=== PATIENT | male | born 1970 | race Caucasian/White ===

== ENCOUNTER 2022-06-15 11:18 | Emergency (ER) | payer OTHER, MEDICAID, SELFPAY ==
[2022-06-15 11:23] VITALS: BP 158/103; PULSE 81; RESP 20; TEMP 36.9; O2SAT 97
--- NOTE | 2022-06-15 11:32 | DI.RAD.S_ITS ---
PROCEDURE: XR LUMBAR SPINE 2-3V INDICATIONS: back pain. injury TECHNIQUE: 3 views of the lumbar spine were acquired. COMPARISON: [facility], MR, MR LUMBAR SPINE WITHOUT CONTRAST, 05/27/2017, 13:33. [facility], CR, L-SPINE 2-3 VIEWS, 12/24/2014, 6:15. FINDINGS: Bones: This patient has transitional lumbar anatomy. For the purposes of this examination, the level with the last well-developed pair of ribs is considered to be T12. This numbering scheme is chosen to remain consistent with the prior plain film report. By this numbering scheme, the S1 level is transitional and is highly lumbarized. There is a well-developed S1-S2 disc seen. No displaced fractures are seen. No suspicious lytic or blastic lesions are seen. Focal moderate disc space narrowing can be seen at T12-L1 and at L5-S1. Endplate irregularity and sclerosis are seen, which are worst at L5-S1. Lower lumbar spine facet arthropathy is seen. Prior laminectomy change can be seen at L5-S1. Soft tissues: Overlying bowel gas pattern is normal. No suspicious soft tissue calcifications. IMPRESSION: Negative for acute fracture. If there is point tenderness (or other clinical suspicion for a fracture not seen on these images) then a dedicated CT could be considered for further evaluation, if clinically appropriate. Degenerative changes are seen, which are overall worst at L5-S1 and have progressed compared to 2014. Transitional lumbar anatomy, with a highly lumbarized S1. Prior laminectomy change at L5-S1. Dictated by: Gabriele Bonilla M.D. on 06/15/2022 at 11:01 Approved by: Gabriele Bonilla M.D. on 06/15/2022 at 11:05
[2022-06-15 13:57] VITALS: BP 147/75; PULSE 86; TEMP 36.7; O2SAT 98
--- NOTE | 2022-06-15 14:16 | ED.BACK ---
HPI - Back Pain/Injury <Dede Perdomo, PROJECT ARCHITECT - Last Filed: 06/15/22 14:21> General Chief Complaint: Back Pain/Injury Stated Complaint: Back pain/injury Time Seen by Provider: 06/15/22 13:59 Source: patient History of Present Illness HPI Narrative: This is a 52-year-old gentleman presents emergency department complaining of acute exacerbation of chronic low back pain, states it has been worse over the last 3 weeks after he had a flare. He does not currently have a primary care provider, states he used to see Dr. Hernandez, states that he has been taking ibuprofen and nothing is helping his symptoms. He states that his son gave him a Vicodin this morning. Patient has a history of L5-S1 laminectomy, denies any recent trauma, urinary retention fever, chills, weakness, incontinence, or new sensation changes. He states that he needs a chronic pain provider, and is requesting tramadol for pain. Related Data Home Medications Medication Instructions Recorded Confirmed TRAMADOL HCL (ULTRAM ER) 300 mg PO QDAY #0 tabs 02/02/16 amitriptyline 25 mg tablet 25 mg PO HS ##0 02/02/16 buspirone 10 mg tablet 20 mg PO BID ##0 02/02/16 oxycodone 40 mg tablet,crush 40 mg PO QDAY ##0 02/02/16 resistant,extended release 12 hr (OxyContin) venlafaxine 75 mg capsule,extended 100 mg PO QDAY ##0 02/02/16 release 24 hr (Effexor XR) Previous Rx's Medication Instructions Recorded methocarbamol 750 mg tablet 750 mg PO Q8H PRN muscle spasm #20 06/15/22 tabs naproxen 375 mg tablet 375 mg PO BID PRN pain #30 tabs 06/15/22 prednisone 20 mg tablet 40 mg PO DAILY 5 days #10 tabs 06/15/22 tramadol 100 mg tablet,extended 100 mg PO DAILY PRN pain #10 tabs 06/15/22 release 24 hr Allergies Allergy/AdvReac Type Severity Reaction Status Date / Time diphenhydramine Allergy Unknown Verified 06/15/22 11:30 [From BENADRYL] gabapentin [GABAPENTIN] Allergy Unknown Verified 06/15/22 11:30 NSAIDS (Non-Steroidal Allergy Unknown Verified 06/15/22 11:30 Anti-Inflamma [NSAIDS (NON-STEROIDAL ANTI-INFLAMMA] Review of Systems <GRANT Dexter - Last Filed: 06/15/22 14:21> Review of Systems ROS Unobtainable: All systems reviewed & are unremarkable except as noted in HPI and below Patient History <GRANT Dexter - Last Filed: 06/15/22 14:21> Social History Smoking Status: Current every day smoker Smoking Status: Current every day smoker tobacco type: vaping alcohol intake frequency: holidays/special occasions only Substance Use Type: marijuana Exam <GRANT Dexter - Last Filed: 06/15/22 14:21> Narrative Exam Narrative: Reviewed vitals signs and nursing notes. General: cooperative, comfortable, in no acute distress, well groomed HEENT: symmetrical facial expressions, moist mucous membranes MSK: moves all extremities, neurovascularly intact, no weakness, normal tone, nontender lumbar spine to palpation, patient is ambulatory without weakness bilaterally, dorsiflexion plantar extension are intact Skin: brisk capillary refill, without pallor or erythema Neuro: normal speech and cognition, A&O x3, ambulatory, clear speech Psych: mental status is grossly normal, congruent mood, normal affect, pleasant and cooperative Initial Vital Signs Initial Vital Signs: Vital Signs Temperature 98.4 F 06/15/22 11:23 Pulse Rate 81 06/15/22 11:23 Respiratory Rate 20 06/15/22 11:23 Blood Pressure 158/103 H 06/15/22 11:23 Pulse Oximetry 97 06/15/22 11:23 Oxygen Delivery Method 06/15/22 11:23 <Leonila Martin DO - Last Filed: 06/16/22 12:49> Initial Vital Signs Initial Vital Signs: Vital Signs Temperature 98.4 F 06/15/22 11:23 Pulse Rate 81 06/15/22 11:23 Respiratory Rate 20 06/15/22 11:23 Blood Pressure 158/103 H 06/15/22 11:23 Pulse Oximetry 97 06/15/22 11:23 Oxygen Delivery Method 06/15/22 11:23 Course <GRANT Dexter - Last Filed: 06/15/22 14:21> Orders Ordered: Discontinued Medications Hydrocodone Bitart/Acetaminophen (Hydrocodone/Acet 5/325 Tablet) 2 tab PO NOW ONE Stop: 06/15/22 14:05 Last Admin: 06/15/22 15:17 Dose: 2 tab Documented By: AT Ketorolac Tromethamine (Ketorolac 30 Mg/Ml Vial) 30 mg IM NOW ONE Stop: 06/15/22 14:05 Last Admin: 06/15/22 15:17 Dose: 30 mg Documented By: AT Lidocaine (Lidocaine Patch 1 Each Adh..Patch) 1 each TOP NOW ONE Stop: 06/15/22 14:05 Last Admin: 06/15/22 15:19 Dose: 1 each Documented By: AT Methocarbamol (Methocarbamol 500 Mg Tablet) 750 mg PO NOW ONE Stop: 06/15/22 14:05 Last Admin: 06/15/22 15:16 Dose: 750 mg Documented By: AT Pantoprazole Sodium (Pantoprazole Dr 20 Mg Tablet) 20 mg PO NOW ONE Stop: 06/15/22 14:05 Last Admin: 06/15/22 15:15 Dose: 20 mg Documented By: AT Prednisone (Prednisone 20 Mg Tablet) 40 mg PO NOW ONE Stop: 06/15/22 14:05 Last Admin: 06/15/22 15:16 Dose: 40 mg Documented By: AT Vital Signs Vital signs: Vital Signs - 8 hr 06/15/22 11:23 06/15/22 13:57 Temperature 98.4 F 98.1 F Pulse Rate 81 86 Respiratory Rate 20 Blood Pressure 158/103 H 147/75 H Pulse Oximetry 97 98 Oxygen Delivery Method Room Air Room Air <Leonila Martin, - Last Filed: 06/16/22 12:49> Orders Ordered: Discontinued Medications Hydrocodone Bitart/Acetaminophen (Hydrocodone/Acet 5/325 Tablet) 2 tab PO NOW ONE Stop: 06/15/22 14:05 Last Admin: 06/15/22 15:17 Dose: 2 tab Documented By: AT Ketorolac Tromethamine (Ketorolac 30 Mg/Ml Vial) 30 mg IM NOW ONE Stop: 06/15/22 14:05 Last Admin: 06/15/22 15:17 Dose: 30 mg Documented By: AT Lidocaine (Lidocaine Patch 1 Each Adh..Patch) 1 each TOP NOW ONE Stop: 06/15/22 14:05 Last Admin: 06/15/22 15:19 Dose: 1 each Documented By: AT Methocarbamol (Methocarbamol 500 Mg Tablet) 750 mg PO NOW ONE Stop: 06/15/22 14:05 Last Admin: 06/15/22 15:16 Dose: 750 mg Documented By: AT Pantoprazole Sodium (Pantoprazole Dr 20 Mg Tablet) 20 mg PO NOW ONE Stop: 06/15/22 14:05 Last Admin: 06/15/22 15:15 Dose: 20 mg Documented By: AT Prednisone (Prednisone 20 Mg Tablet) 40 mg PO NOW ONE Stop: 06/15/22 14:05 Last Admin: 06/15/22 15:16 Dose: 40 mg Documented By: AT Vital Signs Vital signs: Vital Signs - 8 hr 06/15/22 11:23 06/15/22 13:57 Temperature 98.4 F 98.1 F Pulse Rate 81 86 Respiratory Rate 20 Blood Pressure 158/103 H 147/75 H Pulse Oximetry 97 98 Oxygen Delivery Method Room Air Room Air MDM - Back Pain/Injury <Dede Perdomo [facility] - Last Filed: 06/15/22 14:21> Lab Data Labs: Urine Dip Bedside Urine Glucose Negative Bedside Urine Bilirubin - Negative Bedside Urine Ketone - Negative Urine Specific [place] 1.010 Bedside Urine Occult Blood - Negative Bedside Urine pH 7.0 Bedside Urine Protein - Negative Bedside Urine Urobilinogen - Negative Bedside Urine Nitrite - Negative Bedside Urine Leukocytes - Negative Esterase Imaging Data Lumbar XR: Radiologist's Impression: PROCEDURE:? XR LUMBAR SPINE 2-3V ? INDICATIONS:? back pain. injury ? TECHNIQUE:? 3 views of the lumbar spine were acquired.? ? COMPARISON:? [facility], MR, MR LUMBAR SPINE WITHOUT CONTRAST, 05/27/2017, 13:33.? [facility], CR, L-SPINE 2-3 VIEWS, 12/24/2014, 6:15. ? FINDINGS:? ? Bones:? This patient has transitional lumbar anatomy. For the purposes of this examination, the level with the last well-developed pair of ribs is considered to be T12. ?This numbering scheme is chosen to remain consistent with the prior plain film report.? By this numbering scheme, the S1 level is transitional and is highly lumbarized.? There is a well-developed S1-S2 disc seen. ? No displaced fractures are seen.? No suspicious lytic or blastic lesions are seen. ? Focal moderate disc space narrowing can be seen at T12-L1 and at L5-S1.? Endplate irregularity and sclerosis are seen, which are worst at L5-S1. Lower lumbar spine facet arthropathy is seen.? ? Prior laminectomy change can be seen at L5-S1. ? Soft tissues:? Overlying bowel gas pattern is normal.? No suspicious soft tissue calcifications.? ? ? IMPRESSION:? Negative for acute fracture. ? If there is point tenderness (or other clinical suspicion for a fracture not seen on these images) then a dedicated CT could be considered for further evaluation, if clinically appropriate. ? Degenerative changes are seen, which are overall worst at L5-S1 and have progressed compared to 2015. ? Transitional lumbar anatomy, with a highly lumbarized S1. ? Prior laminectomy change at L5-S1.? ? Dictated by: Gabriele Bonilla M.D. on 06/15/2022 at 11:01 ? ? Approved by: Gabriele Bonilla M.D. on 06/15/2022 at 11:05 ? MDM Narrative Medical decision making narrative: Patient presents with 3 weeks of worsening low back pain with history of chronic low back pain, prior L5-S1 laminectomy, is without recent trauma, and is afebrile. Suspect likely musculoskeletal etiology, pt is nontoxic appearing with no overt risk factors for epidural hematoma or abscess, caudal equina, and has a nonfocal neuro exam. Spine was non-tender to palpation, pt is ambulatory, without new weakness. Considered nephrolithiasis/pyelonephritis, epidural abscess/hematoma, ligamental injury, paraspinal or other muscular strain, chronic pain, osteoarthritis, disk injury/herniation, degenerative disease, radiculopathy, and critical cord compression. Pt is neurovascularly intact distally, afebrile, without immunosuppression or evidence of infection, peritoneal signs, hypertensive crisis, incontinence, meningeal signs, or abdominal pain with low suspicion for AAA. Without findings concerning for caudal equina, transverse myelitis, spinal vascular malformation, osteomyelitis, degenerative myelopathy, or cord infarction. Recommend that patient follow-up with the phone number provided to him on his discharge paperwork and to establish primary care with a provider here at [facility], ask for referral to physical therapy, and for chronic pain. Patient states understanding, Patient is appropriate and amenable to discharge home. Vital signs are stable on repeat examination is unremarkable. Patient has been informed of results. Patient has been given strict return to ER precautions for any new or worsening symptoms. Patient understands to follow up closely with outpatient providers as instructed. Patient understands plan and agrees to discharge home. All questions and concerns answered at this time. <Leonila Martin, DO - Last Filed: 06/16/22 12:49> Lab Data Labs: Urine Dip Bedside Urine Glucose Negative Bedside Urine Bilirubin - Negative Bedside Urine Ketone - Negative Urine Specific [place] 1.010 Bedside Urine Occult Blood - Negative Bedside Urine pH 7.0 Bedside Urine Protein - Negative Bedside Urine Urobilinogen - Negative Bedside Urine Nitrite - Negative Bedside Urine Leukocytes - Negative Esterase Discharge Plan Departure Patient Disposition: Home Clinical Impression: Acute exacerbation of chronic low back pain Instructions: Managing Chronic Low Back Pain, DI for Back Pain With Sciatica, DI for Back Spasm Activity Restrictions/Additional Instructions: *You have been diagnosed with an acute exacerbation of chronic low back pain. Please call the number below to get signed up for 1 of her primary care providers, I have attached [facility] pain clinic as well if you have chronic pain needs. Please take naproxen every 12 hours with food and water, 650 mg of Tylenol every 6 hours, and okay to use tramadol occasionally. Please follow-up with a provider for chronic pain medications, we are not allowed to prescribe opiates for chronic pain unfortunately. *What to do: *Please continue to take your regular medications as directed. [ x] New medication prescriptions sent to your pharmacy: [[facility]] [ ] New medication written as a paper prescription [ ] No new medications given *Please follow up with your primary care provider in 2-3 days, call for an appointment. Let them know you were seen in the Emergency Department and that we asked that you be seen for follow-up. We will electronically transmit a record of today's note if your PCP is in our system *If you do not have a primary care provider please contact [phone] to establish care with one of the [facility] primary care providers. *Return to Emergency Department if you should have any new, worsening, or concerning symptoms, such as [fever greater than 101F, chills, worsening pain, persistent vomiting or other bothersome symptoms]. Prescriptions: New tramadol 100 mg tablet extended release 24 hr 100 mg PO DAILY PRN (Reason: pain) Qty: 10 0RF methocarbamol 750 mg tablet 750 mg PO Q8H PRN (Reason: muscle spasm) Qty: 20 0RF prednisone 20 mg tablet 40 mg PO DAILY 5 Days Qty: 10 0RF naproxen 375 mg tablet 375 mg PO BID PRN (Reason: pain) Qty: 30 0RF No Action venlafaxine [Effexor XR] 75 MG capsule,extended release 24hr 100 mg PO QDAY Qty: 0 buspirone 10 MG tablet 20 mg PO BID Qty: 0 amitriptyline 25 MG tablet 25 mg PO HS Qty: 0 oxycodone [OxyContin] 40 MG tablet,oral only,ext.rel.12 hr 40 mg PO QDAY Qty: 0 TRAMADOL HCL (ULTRAM ER) 300 mg PO QDAY Qty: 0 Referrals: [facility] [Provider Group] Visit Report Forms: Patient Portal/API <Leonila Martin DO - Last Filed: 06/16/22 12:49> Cosign ED Attending Corinneature Attestation: I was immediately available in the department for consultation. Documentation has been reviewed.
[2022-06-15] MEDS: PANTOPRAZOLE DR 20 MG TABLET PO (15:15)
[2022-06-15] MEDS: methocarbamoL 500 MG TABLET 750 MG PO (15:16)
[2022-06-15] MEDS: predniSONE 20 MG TABLET 40 MG PO (15:16)
[2022-06-15] MEDS: HYDROCODONE/ACET 5/325 TABLET 2 TAB PO (15:17)
[2022-06-15] MEDS: KETOROLAC 30 MG/ML VIAL IM (15:17)
[2022-06-15] MEDS: LIDOCAINE PATCH 1 EACH ADH..PATCH TOP (15:19)
[2022-06-15 15:23] VITALS: BP 167/79; PULSE 86; RESP 18; O2SAT 97
== END 2022-06-15 15:24 | disposition home or self-care (01) ==
PROVIDERS: Emergency Provider Nurse Practitioner Critical Care Medicine
DX: M54.50 Low back pain, unspecified (principal)
CPT/HCPCS: 72100; 81003; 96372; 99283; 99284; J1885

== ENCOUNTER → 2022-06-18 16:40 | Outpatient (CLI) | payer OTHER, MEDICAID, SELFPAY ==
[2022-06-18 17:36] LABS: Add Manual Diff / Slide Review NO; Basophils Absolute Auto 0 /uL (0-100); Basophils Percent Auto 0.5 % (0-2); Eosinophils Absolute Auto 300 /uL (0-450); Eosinophils Percent Auto 3.8 % (2-4); Hematocrit 45.2 % (41-53); Hemoglobin 15.8 g/dL (13.5-17.5); Lymphocytes Absolute Auto 2400 /uL (1100-4500); Lymphocytes Percent Auto 29.2 % (25-40); Mean Corpuscular HGB Conc 34.9 % (30-36); Mean Corpuscular Hemoglobin 30.2 PG (26-34); Mean Corpuscular Volume 86.7 fL (80-100); Monocytes Absolute Auto 700 /uL (0-900); Monocytes Percent Auto 8.5 % (3-14); Neutrophils Absolute Auto 4700 /uL (1500-7000); Platelet Count 201 X10^3/uL (150-400); Red Blood Cell Count 5.21 X10^6/uL (4.5-5.9); Red Cell Distribution Width 12.7 % (11.6-14.8); White Blood Cell Count 8.1 X10^3/uL (4.5-11.0)
[2022-06-18 17:57] LABS: Alanine Aminotransferase 97 IU/L (<50); Albumin 4.5 g/dL (3.5-5.0); Albumin Globulin Ratio 1.4 (1.0-2.8); Alkaline Phosphatase 77 U/L (38-126); Aspartate Aminotransferase 53 IU/L (17-59); BUN Creatinine Ratio 17.9 (6-22); Bilirubin Total 0.7 mg/dL (0.2-1.3); Blood Urea Nitrogen 14 mg/dL (9-20); Calcium 9.6 mg/dL (8.4-10.2); Carbon Dioxide 26 mmol/L (22-32); Chloride 99 mmol/L (98-107); Cholesterol 214 mg/dL (140-199); Estimated Glomerular Filt Rate > 60 mL/min (>60); Globulin 3.3 g/dL (1.7-4.1); Glucose 115 mg/dL (70-100); HDL Cholesterol 39 mg/dL (40-60); HEMOLYSIS < 15 (0-50); LDL Cholesterol Calculated 122 mg/dL (<100); Potassium 3.9 mmol/L (3.4-5.1); Sodium 136 mmol/L (137-145); Total Protein 7.8 g/dL (6.3-8.2); Triglycerides 265 mg/dL (35-150)
[2022-06-18 18:04] LABS: Hemoglobin A1C% w Est Avg Glu 7.3 % (4.0-6.0)
== END ==
PROVIDERS: PCP Family Medicine; Referring Provider Family Medicine; Visit Provider Family Medicine
DX: I10 Essential (primary) hypertension (principal)
CPT/HCPCS: 36415; 80053; 80061; 83036; 85025

== ENCOUNTER 2022-09-23 12:11 | Emergency (ER) | payer OTHER, MEDICAID, SELFPAY ==
[2022-09-23] VITALS (7 sets, daily range): BP systolic 130–149; BP diastolic 78–88; PULSE 67–93; RESP 10–20; TEMP 36.8; O2SAT 94–98; BMI 34.8
--- NOTE | 2022-09-23 12:29 | DI.CT.S_ITS ---
PROCEDURE: CT ANGIO CHEST ABDOMEN PELVIS INDICATIONS: dissection protocol/left chest abd pain TECHNIQUE: Precontrast 5 mm thick sections acquired from the lung apices to the iliac crests. After the administration of intravenous contrast, 2.5 mm thick sections again acquired from the lung apices to the iliac crests. Maximum intensity projection (MIP) oblique sagittal and coronal reformats were then acquired. For radiation dose reduction, the following was used: automated exposure control. COMPARISON: None. FINDINGS: Image quality: Excellent. AORTA: No hemodynamically significant stenosis, vascular occlusion, aneurysmal dilation or dissection. Scattered areas of minimal atherosclerotic calcification is noted within the abdominal aorta. CHEST: Lungs and pleura: No acute airspace opacities. No pleural effusions or pneumothorax. Central and peripheral airways are patent and normal in caliber. Mediastinum: Heart size is normal. No pericardial effusion. No mediastinal or hilar adenopathy by size criteria. Central pulmonary arteries are normal in size. Esophagus is normal in caliber. No hiatal hernias. Bones and chest wall: No axillary adenopathy by size criteria. Thyroid gland is unremarkable . No suspicious bony lesions. No vertebral body compression fractures. ABDOMEN: Vasculature: Celiac trunk and mesenteric arteries are patent. Renal arteries are also patent. Solid organs: Liver is normal in size and enhancement. Gallbladder is unremarkable . Biliary system is non dilated. Pancreas enhances normally. Spleen is normal in size and enhancement. No adrenal nodules. Both kidneys are normal in size and enhancement, without hydronephrosis. Punctate nonobstructing left renal calculus. Peritoneum and bowel: No free fluid or air. Bowel loops are normal in caliber and wall thickness. Nodes and vessels: No retroperitoneal or mesenteric adenopathy by size criteria. Inferior vena cava is normal in morphology. Miscellaneous: Trace fat containing ventral hernia is present. PELVIS: Genitourinary: Bladder wall thickness is normal. Miscellaneous: Fat containing bilateral inguinal hernias are present. No ventral hernias. Bones: No suspicious bony lesions. No vertebral body compression fractures. IMPRESSION: No dissection. Minimal atherosclerotic change. Nonobstructing left renal calculus. Dictated by: Sarah Kelsey M.D. on 09/23/2022 at 13:15 Approved by: Sarah Kelsey M.D. on 09/23/2022 at 13:17
[2022-09-23 13:00] LABS: Add Manual Diff / Slide Review NO; Alanine Aminotransferase 99 IU/L (<50); Albumin 4.4 g/dL (3.5-5.0); Albumin Globulin Ratio 1.3 (1.0-2.8); Alkaline Phosphatase 75 U/L (38-126); Aspartate Aminotransferase 55 IU/L (17-59); BUN Creatinine Ratio 18.6 (6-22); Basophils Absolute Auto 0 /uL (0-100); Basophils Percent Auto 0.4 % (0-2); Blood Urea Nitrogen 13 mg/dL (9-20); Calcium 8.7 mg/dL (8.4-10.2); Carbon Dioxide 28 mmol/L (22-32); Chloride 99 mmol/L (98-107); Creatine Kinase 125 U/L (55-170); Eosinophils Absolute Auto 300 /uL (0-450); Eosinophils Percent Auto 3.6 % (2-4); Estimated Glomerular Filt Rate > 60 mL/min (>60); Globulin 3.4 g/dL (1.7-4.1); Glucose 158 mg/dL (70-100); HEMOLYSIS < 15 (0-50); Hematocrit 46.2 % (41-53); Hemoglobin 15.8 g/dL (13.5-17.5); Lipase 54 U/L (23-300); Lymphocytes Absolute Auto 2100 /uL (1100-4500); Lymphocytes Percent Auto 29.4 % (25-40); Magnesium 1.7 mg/dL (1.6-2.3); Mean Corpuscular HGB Conc 34.2 % (30-36); Mean Corpuscular Hemoglobin 29.6 PG (26-34); Mean Corpuscular Volume 86.7 fL (80-100); Monocytes Absolute Auto 600 /uL (0-900); Monocytes Percent Auto 8.4 % (3-14); Neutrophils Absolute Auto 4100 /uL (1500-7000); Neutrophils Percent Auto 58.2 % (50-75); Platelet Count 189 X10^3/uL (150-400); Potassium 3.5 mmol/L (3.4-5.1); Red Blood Cell Count 5.32 X10^6/uL (4.5-5.9); Red Cell Distribution Width 12.6 % (11.6-14.8); Sodium 135 mmol/L (137-145); Total Protein 7.8 g/dL (6.3-8.2); White Blood Cell Count 7.1 X10^3/uL (4.5-11.0)
--- NOTE | 2022-09-23 13:00 | ED_ITS ---
HPI - Chest Pain General Chief Complaint: Chest Pain Stated Complaint: Chest pain, abd pain, high bp Time Seen by Provider: 09/23/22 12:28 Source: patient Mode of arrival: Wheelchair History of Present Illness HPI narrative: Patient sent here by primary care for complains of left-sided chest pain left abdominal pain. Patient has history of diabetes and high blood pressure. Patient seen by primary care last month and was considering outpatient stress test which patient has not had. No primary family history of aortic aneurysm or dissection. Nor does patient. Patient states pain started last night and has been constant. It is positional and worse with movement. Patient has history of chronic back pain but states this is different. No history of kidney stones. No urinary complaints. No diaphoresis no dyspnea no syncope no numbness tingling or weakness. Related Data Home Medications Medication Instructions Recorded Confirmed quetiapine 25 mg tablet 25 mg PO BEDTIME 09/29/22 09/29/22 Previous Rx's Medication Instructions Recorded chlorthalidone 25 mg tablet 25 mg PO DAILY blood pressure #90 06/18/22 tabs losartan 100 mg tablet 100 mg PO DAILY blood pressure #90 06/18/22 tabs atorvastatin 20 mg tablet (Lipitor) 20 mg PO BEDTIME cholesterol #90 06/30/22 tabs metformin 500 mg tablet,extended 1,000 mg PO BID #360 tabs 06/30/22 release 24 hr amlodipine 5 mg tablet (Norvasc) 5 mg PO DAILY blood pressure #90 09/02/22 tabs methocarbamol 750 mg tablet 750 mg PO Q8H PRN muscle spasm #30 09/08/22 tabs hydrocodone 5 mg-acetaminophen 325 1 tab PO Q8H PRN pain #20 tabs 09/29/22 mg tablet naproxen 500 mg tablet 500 mg PO BID PRN pain #60 tabs 09/29/22 Allergies Allergy/AdvReac Type Severity Reaction Status Date / Time diphenhydramine Allergy Unknown Verified 09/29/22 09:58 [From BENADRYL] gabapentin [GABAPENTIN] Allergy Unknown Verified 09/29/22 09:58 NSAIDS (Non-Steroidal Allergy Unknown Verified 09/29/22 09:58 Anti-Inflamma [NSAIDS (NON-STEROIDAL ANTI-INFLAMMA] Review of Systems Review of Systems Narrative: GENERAL: negative chills, fatigue, malaise, fever, sweats. HEENT: negative sinus pain, ear pain, sore throat RESPIRATORY: negative dyspnea, cough CARDIOVASCULAR: Positive chest pain, negative palpitations GASTROINTESTINAL: negative nausea, vomiting, positive abdominal pain : negative dysuria, frequency, hematuria MUSCULOSKELETAL: negative muscle or bony pain SKIN: negative rash, skin lesions NEUROLOGIC: negative weakness, numbness ROS Unobtainable: All systems reviewed & are unremarkable except as noted in HPI and below Patient History Medical History (Updated 09/29/22 @ 10:31 by Nino Scott DO) Anxiety Benign essential HTN (~2009) Chronic back pain Complex regional pain syndrome COVID-19 Depression GERD (gastroesophageal reflux disease) GI bleeding History of urinary incontinence (~06/2022) Hyperlipidemia Low testosterone (~2009) Post traumatic stress disorder (PTSD) TBI (traumatic brain injury) (~1985) Type 2 diabetes mellitus without complication, with no history of insulin use Vision disorder Surgical History Anesthesia History of back surgery Family History Father Infection Mother Dementia Social History Smoking Status: Current every day smoker Smoking Status: Current every day smoker tobacco type: vaping alcohol intake frequency: holidays/special occasions only Substance Use Type: marijuana Exam Narrative Exam Narrative: GENERAL: in no distress, not toxic not dyspneic HEAD: Normocephalic. EYES: Pupils equal round ENT: Mucous membranes moist. NECK: Trachea midline. CARDIOVASCULAR: Regular rate and rhythm without murmurs RESPIRATORY: Clear to auscultation. Breath sounds equal bilaterally. No wheezes, rales, or rhonchi. GASTROINTESTINAL: Abdomen soft, reproducible left upper quadrant tenderness no peritoneal signs, bowel sounds are present EXTREMITIES: No gross deformities. BACK: No flank tenderness. NEURO: AOx4. SKIN: Warm and dry PSYCH: Not anxious, is cooperative Initial Vital Signs Initial Vital Signs: Vital Signs Temperature 98.3 F 09/23/22 12:19 Pulse Rate 93 H 09/23/22 12:19 Respiratory Rate 16 09/23/22 12:19 Blood Pressure 149/88 H 09/23/22 12:19 Pulse Oximetry 97 09/23/22 12:19 Oxygen Delivery Method Room Air 09/23/22 12:19 Course Orders Ordered: Discontinued Medications Sodium Chloride (Normal Saline 0.9%) 500 mls @ 1,000 mls/hr IV BOLUS ONE Stop: 09/23/22 12:58 Last Infusion: 09/23/22 14:20 Dose: 0 mls/hr Documented By: Admin: 09/23/22 13:51 Dose: 1,000 mls/hr Documented By: AT Vital Signs Vital signs: Vital Signs - 8 hr 09/23/22 12:19 09/23/22 12:55 09/23/22 13:00 Temperature 98.3 F Pulse Rate 93 H 75 73 Respiratory Rate 16 10 L Blood Pressure 149/88 H Pulse Oximetry 97 97 97 Oxygen Delivery Method Room Air Room Air 09/23/22 13:30 09/23/22 13:53 09/23/22 13:53 Temperature Pulse Rate 67 69 Respiratory Rate 15 20 Blood Pressure 137/81 Pulse Oximetry 94 98 Oxygen Delivery Method Room Air MDM - Chest Pain Lab Data 09/23/22 12:38 09/23/22 12:38 Labs: Lab Results 09/23/22 09/23/22 09/23/22 Range/Units 12:38 12:38 12:38 WBC 7.1 (4.5-11.0) X10^3/uL RBC 5.32 (4.5-5.9) X10^6/uL Hgb 15.8 (13.5-17.5) g/dL Hct 46.2 (41-53) % MCV 86.7 (80-100) fL MCH 29.6 (26-34) PG MCHC 34.2 (30-36) % RDW 12.6 (11.6-14.8) % Plt Count 189 (150-400) X10^3/uL Neut % (Auto) 58.2 (50-75) % Lymph % (Auto) 29.4 (25-40) % Glascock % (Auto) 8.4 (3-14) % Eos % (Auto) 3.6 (2-4) % Baso % (Auto) 0.4 (0-2) % Neut # (Auto) 4100 (7576-5628) /uL Lymph # (Auto) 2100 (2797-6092) /uL Glascock # (Auto) 600 (0-900) /uL Eos # (Auto) 300 (0-450) /uL Baso # (Auto) 0 (0-100) /uL PT 12.9 H (10.1-12.7) SECONDS INR 1.1 (0.9-1.3) APTT 31 (26-36) SECONDS Sodium 135 L (137-145) mmol/L Potassium 3.5 (3.4-5.1) mmol/L Chloride 99 (98-107) mmol/L Carbon Dioxide 28 (22-32) mmol/L BUN 13 (9-20) mg/dL Creatinine 0.70 (0.66-1.25) mg/dL Estimated GFR > 60 (>60) mL/min BUN/Creatinine Ratio 18.6 (6-22) Glucose 158 H (70-100) mg/dL Calcium 8.7 (8.4-10.2) mg/dL Magnesium 1.7 (1.6-2.3) mg/dL Total Bilirubin 1.0 (0.2-1.3) mg/dL AST 55 (17-59) IU/L ALT 99 H (<50) IU/L Alkaline Phosphatase 75 (38-126) U/L Total Creatine Kinase 125 (55-170) U/L CK-MB (CK-2) 2.14 (<2.37) ng/mL CK-MB (CK-2) Rel Index 1.7 (1.5-5.0) % Troponin I < 0.012 (0.01-0.034) ng/mL Total Protein 7.8 (6.3-8.2) g/dL Albumin 4.4 (3.5-5.0) g/dL Globulin 3.4 (1.7-4.1) g/dL Albumin/Globulin Ratio 1.3 (1.0-2.8) Lipase 54 (23-300) U/L Imaging Data CT chest abdomen and pelvis: Radiologist's Impression: PROCEDURE:? CT ANGIO CHEST ABDOMEN PELVIS ? INDICATIONS:? dissection protocol/left chest abd pain ? TECHNIQUE:? Precontrast 5 mm thick sections acquired from the lung apices to the iliac crests.? After the administration of intravenous contrast, 2.5 mm thick sections again acquired from the lung apices to the iliac crests.? Maximum intensity projection (MIP) oblique sagittal and coronal reformats were then acquired.? For radiation dose reduction, the following was used:? automated exposure control.? ? COMPARISON:? None. ? FINDINGS:? Image quality:? Excellent.? ? AORTA:? No hemodynamically significant stenosis, vascular occlusion, aneurysmal dilation or dissection.? Scattered areas of minimal atherosclerotic calcification is noted within the abdominal aorta. ? CHEST:? Lungs and pleura:? No acute airspace opacities.? No pleural effusions or pneumothorax.? Central and peripheral airways are patent and normal in caliber.? ? Mediastinum:? Heart size is normal.? No pericardial effusion.? No mediastinal or hilar adenopathy by size criteria.? Central pulmonary arteries are normal in size.? Esophagus is normal in caliber.? No hiatal hernias.? ? Bones and chest wall:? No axillary adenopathy by size criteria.? Thyroid gland is unremarkable .? No suspicious bony lesions.? No vertebral body compression fractures.? ? ? ABDOMEN:? Vasculature:? Celiac trunk and mesenteric arteries are patent.? Renal arteries are also patent.? ? Solid organs:? Liver is normal in size and enhancement.? Gallbladder is unremarkable .? Biliary system is non dilated.? Pancreas enhances normally.? Spleen is normal in size and enhancement.? No adrenal nodules.? Both kidneys are normal in size and enhancement, without hydronephrosis.? Punctate nonobstructing left renal calculus. ? Peritoneum and bowel:? No free fluid or air.? Bowel loops are normal in caliber and wall thickness.? ? Nodes and vessels:? No retroperitoneal or mesenteric adenopathy by size criteria.? Inferior vena cava is normal in morphology.? ? Miscellaneous:? Trace fat containing ventral hernia is present. ? ? PELVIS:? Genitourinary:? Bladder wall thickness is normal.? ? Miscellaneous:? Fat containing bilateral inguinal hernias are present.? No ventral hernias.? ? Bones:? No suspicious bony lesions.? No vertebral body compression fractures.? ? ? IMPRESSION:? ? No dissection.? Minimal atherosclerotic change. ? Nonobstructing left renal calculus. ? Dictated by: Sarah Kelsey M.D. on 09/23/2022 at 13:15 ? ? Approved by: Sarah Kelsey M.D. on 09/23/2022 at 13:17 ? MDM Narrative Medical decision making narrative: Patient sent here by primary care for complains of left-sided chest pain left abdominal pain. Patient has history of diabetes and high blood pressure. Patient seen by primary care last month and was considering outpatient stress test which patient has not had. No primary family history of aortic aneurysm or dissection. Nor does patient. Patient states pain started last night and has been constant. It is positional and worse with movement. Patient has history of chronic back pain but states this is different. No history of kidney stones. No urinary complaints. No diaphoresis no dyspnea no syncope no numbness tingling or weakness. After history and exam CBC CMP troponin EKG CT angiogram chest abdomen pelvis dissection protocol ordered, normal saline MDM CC: Chest pain abdominal pain Complicating co-morbidities: Diabetes high blood pressure Data collected from: Patient Medical records reviewed: Primary care office visit August 2022 Differential considered: Includes but not limited to aortic dissection aneurysm STEMI non-STEMI colitis diverticulitis pneumonia pulmonary embolism Exam documented above, pertinent findings include: Reproducible left upper quadrant tenderness Lab Test results independently reviewed as above. Pertinent findings: WBC 7.1 hemoglobin 15 sodium 135 potassium 3.5 glucose 158 creatinine 0.7 GFR greater than 60 AST 55 ALT 99 Independently reviewed EKG as above normal sinus rhythm normal EKG rate [address] elevation or depression Imaging studies independently reviewed: CT angiogram chest abdomen and pelvis IMPRESSION:? ? No dissection.? Minimal atherosclerotic change. ? Nonobstructing left renal calculus. Treatments: Normal saline Re-evaluations: 2:00 p.m.. Re-evaluated patient. Without any medications patient's left upper quadrant pain has improved. It is less tender on palpation. On review, patient states did not have left chest pain he had left lower quadrant pain that radiated up to the left upper quadrant. No nausea or vomiting no sweating no syncope. Patient states it may be a continuum of his chronic back pain with disc problem. He is scheduled for stress test next week with his primary care. Pain is controlled at this time. He desires discharge home. Clinically at this time does not sound cardiac in origin. Discussion: Appropriate for discharge home. Patient has left lower quadrant pain that radiated left upper quadrant. Did not have chest pain. Did not have back pain. Exam and laboratory studies and imaging are reassuring. No repeat troponin indicated. Pain is minimal at time of discharge. He desires discharge home. Return precautions reviewed with him Diagnosis: Abdominal pain Discharge Plan Departure Patient Disposition: Home Clinical Impression: Abdominal pain Instructions: DI for Abdominal Pain-Adult Activity Restrictions/Additional Instructions: Please see family doctor for re-evaluation. Please do follow up for your stress test next week as scheduled with your family doctor. Return if worse if any questions or concerns. May continue home medications. At this time laboratory studies EKG and CT scan imaging are reassuring. Prescriptions: No Action methocarbamol 750 mg tablet 750 mg PO Q8H PRN (Reason: muscle spasm) Qty: 30 3RF losartan 100 mg tablet 100 mg PO DAILY Qty: 90 3RF chlorthalidone 25 mg tablet 25 mg PO DAILY Qty: 90 3RF atorvastatin [Lipitor] 20 mg tablet 20 mg PO BEDTIME Qty: 90 3RF metformin 500 mg tablet extended release 24 hr 1,000 mg PO BID Qty: 360 3RF quetiapine 25 mg tablet 25 mg PO BEDTIME hydrocodone-acetaminophen 5-325 mg tablet 1 tab PO Q8H PRN (Reason: pain) Qty: 20 0RF naproxen 500 mg tablet 500 mg PO BID PRN (Reason: pain) Qty: 60 0RF Rx Instructions: with food and full glass of water amlodipine [Norvasc] 5 mg tablet 5 mg PO DAILY Qty: 90 3RF Referrals: Nino Scott DO [Primary Care Provider] - Stand Alone Forms: Patient Portal/API
[2022-09-23 13:03] LABS: INR 1.1 (0.9-1.3); Prothrombin Time 12.9 SECONDS (10.1-12.7)
[2022-09-23 13:05] LABS: PTT Partial Thromboplastin Tim 31 SECONDS (26-36)
[2022-09-23 13:11] LABS: Troponin I < 0.012 ng/mL (0.01-0.034)
[2022-09-23 13:15] LABS: CKMB % Relative Index 1.7 % (1.5-5.0); Creatine Kinase MB 2.14 ng/mL (<2.37)
[2022-09-23] MEDS: SODIUM CHLORIDE 0.9% 500 ML 1000 ML IV (13:51)
== END 2022-09-23 14:21 | disposition home or self-care (01) ==
PROVIDERS: Emergency Provider Emergency Medicine; PCP Family Medicine
DX: R10.32 Left lower quadrant pain (principal)
CPT/HCPCS: 36415; 71275; 74174; 80053; 82550; 82553; 83690; 83735; 84484; 85025; 85610; 85730; 93005; 93010; 99284; Q9967

== ENCOUNTER → 2022-09-27 08:10 | Outpatient (CLI) | payer OTHER, MEDICAID, SELFPAY ==
[2022-09-27 09:15] LABS: Hemoglobin A1C% w Est Avg Glu 8.5 % (4.0-6.0)
[2022-09-27 09:18] LABS: BUN Creatinine Ratio 21.1 (6-22); Blood Urea Nitrogen 16 mg/dL (9-20); Calcium 8.9 mg/dL (8.4-10.2); Carbon Dioxide 29 mmol/L (22-32); Chloride 100 mmol/L (98-107); Estimated Glomerular Filt Rate > 60 mL/min (>60); Glucose 212 mg/dL (70-100); HEMOLYSIS < 15 (0-50); Potassium 3.6 mmol/L (3.4-5.1); Sodium 136 mmol/L (137-145)
== END ==
PROVIDERS: PCP Family Medicine; Referring Provider Family Medicine; Visit Provider Family Medicine
DX: E11.9 Type 2 diabetes mellitus without complications (principal); I10 Essential (primary) hypertension
CPT/HCPCS: 36415; 80048; 83036

== ENCOUNTER → 2022-10-02 07:42 | Outpatient (CLI) | payer OTHER, MEDICAID, SELFPAY ==
--- NOTE | 2022-10-03 02:30 | DI.NM.S_ITS ---
DATE OF SERVICE: 10/02/2022 PROCEDURE: Exercise treadmill stress test without imaging. ORDERING PROVIDER: Dr. Nino Scott. INDICATIONS: The patient is a 52-year-old male with diabetes, hypertension, and atypical chest discomfort. EXERCISE TREADMILL TESTIN. The patient was able to exercise for 7 minutes 5 seconds on a standard Max protocol suggesting moderately reduced exercise capacity with an CHRISTIANO of +24%, achieving 8.0 METs. 2. He had a normal heart rate and blood pressure response to exercise, achieving a maximum heart rate of 154 BPM (93% of his predicted maximum). 3. He had no chest discomfort or other anginal symptoms. 4. His resting ECG shows sinus rhythm with normal ST segments. With stress, there are no significant ST-segment shifts. He has occasional PVCs with stress, but no complex ventricular ectopy. IMPRESSION: 1. Normal exercise treadmill stress test for ischemia. 2. Moderately reduced exercise capacity without angina. He had occasional PVCs with stress, but no complex ventricular ectopy. Layton Arvizu - SHAWNA/kimberly/marie doc#: [id number]/job#: [id number] dd: 10/02/2022 17:03:00 dt: 10/03/2022 02:23:00 DICTATING MD/COPIES TO: Tyler Arenas MD; Dr. Nino Scott COPIES TAYLERE: SONIA; ; Dr. Nino Scott
== END ==
PROVIDERS: PCP Family Medicine; Referring Provider Family Medicine; Visit Provider Family Medicine
DX: E11.9 Type 2 diabetes mellitus without complications (principal); I10 Essential (primary) hypertension; R07.89 Other chest pain; I49.3 Ventricular premature depolarization
CPT/HCPCS: 93017

== ENCOUNTER → 2022-12-24 11:55 | Outpatient (CLI) | payer OTHER, MEDICAID, SELFPAY ==
[2022-12-25 03:36] LABS: Labcorp Hemoglobin (Hb) A1c 7.7 % (4.8-5.6)
== END ==
PROVIDERS: PCP Family Medicine; Referring Provider Family Medicine; Visit Provider Family Medicine
DX: E11.9 Type 2 diabetes mellitus without complications (principal)
CPT/HCPCS: 36415; 83036

== ENCOUNTER 2023-07-24 11:30 | Emergency (ER) | payer OTHER, MEDICAID, SELFPAY ==
[2023-07-24] VITALS (14 sets, daily range): BP systolic 111–151; BP diastolic 70–88; PULSE 67–96; RESP 9–43; TEMP 37; O2SAT 95–98; BMI 33.5
--- NOTE | 2023-07-24 11:34 | DI.RAD.S_ITS ---
PROCEDURE: XR CHEST 1V INDICATIONS: chest pain TECHNIQUE: One view of the chest was acquired. COMPARISON: [facility], , CHEST 1 VIEW, 02/03/2016, 12:17. FINDINGS: Surgical changes and devices: None. Lungs and pleura: Lungs are clear. No pleural effusions or pneumothorax. Mediastinum: Mediastinal contours appear normal. Heart size is normal. Bones and chest wall: No suspicious bony lesions. Overlying soft tissues appear unremarkable. IMPRESSION: No acute cardiopulmonary abnormality is seen. Dictated by: Vesta Wilcox M.D. on 07/24/2023 at 12:28 Approved by: Vesta Wilcox M.D. on 07/24/2023 at 12:28
[2023-07-24 12:01] LABS: Add Manual Diff / Slide Review NO; Basophils Absolute Auto 0 /uL (0-100); Basophils Percent Auto 0.5 % (0-2); Eosinophils Absolute Auto 300 /uL (0-450); Eosinophils Percent Auto 4.7 % (2-4); Hematocrit 44.6 % (41-53); Hemoglobin 15.4 g/dL (13.5-17.5); Lymphocytes Absolute Auto 1400 /uL (1100-4500); Lymphocytes Percent Auto 25.2 % (25-40); Mean Corpuscular HGB Conc 34.5 % (30-36); Mean Corpuscular Hemoglobin 30.5 PG (26-34); Mean Corpuscular Volume 88.3 fL (80-100); Monocytes Absolute Auto 400 /uL (0-900); Monocytes Percent Auto 6.8 % (3-14); Neutrophils Absolute Auto 3500 /uL (1500-7000); Neutrophils Percent Auto 62.8 % (50-75); Platelet Count 190 X10^3/uL (150-400); Red Blood Cell Count 5.05 X10^6/uL (4.5-5.9); Red Cell Distribution Width 12.8 % (11.6-14.8); White Blood Cell Count 5.6 X10^3/uL (4.5-11.0)
[2023-07-24 12:08] LABS: INR 1.1 (0.9-1.3); Prothrombin Time 12.6 SECONDS (9.4-12.5)
--- NOTE | 2023-07-24 12:10 | PC.NURSE ---
patient states that he woke up this morning with chest pain in his epigastric area that radiates to both shoulders. He took a tums and he says that the pain went away for a little bit and then came back. He alsio took omeprazole which has not helped. He also states that he noticed today that he has a mass under the shaft of his penis. He has 8/10 pain on urination but denies blood in his urine. He also denies fevers or chills.
[2023-07-24 12:11] LABS: PTT Partial Thromboplastin Tim 29 SECONDS (25.1-36.5)
[2023-07-24 12:17] LABS: Alanine Aminotransferase 108 IU/L (<50); Albumin 4.3 g/dL (3.5-5.0); Albumin Globulin Ratio 1.3 (1.0-2.8); Alkaline Phosphatase 73 U/L (38-126); Aspartate Aminotransferase 77 IU/L (17-59); BUN Creatinine Ratio 15.9 (6-22); Bilirubin Total 0.9 mg/dL (0.2-1.3); Blood Urea Nitrogen 11 mg/dL (9-20); Calcium 9.2 mg/dL (8.4-10.2); Carbon Dioxide 28 mmol/L (22-32); Chloride 97 mmol/L (98-107); Creatine Kinase 106 U/L (55-170); Estimated Glomerular Filt Rate > 60 mL/min (>60); Globulin 3.4 g/dL (1.7-4.1); Glucose 259 mg/dL (70-100); HEMOLYSIS < 15 (0-50); Lipase 76 U/L (23-300); Magnesium 1.7 mg/dL (1.6-2.3); Potassium 3.4 mmol/L (3.4-5.1); Sodium 134 mmol/L (137-145); Total Protein 7.7 g/dL (6.3-8.2)
[2023-07-24 12:29] LABS: Troponin I < 0.012 ng/mL (0.01-0.034)
--- NOTE | 2023-07-24 13:05 | ED.CHESTPAIN ---
HPI - Chest Pain General Chief Complaint: Chest Pain Stated Complaint: chest pain Time Seen by Provider: 07/24/23 12:08 Source: patient Mode of arrival: Family Vehicle Limitations: no limitations History of Present Illness HPI narrative: D3 year old male with history of diabetes type 2, hypertension, TBI, chronic pain who presents with complaint of some sternal chest pain that woke him up from sleep this morning improved but then returned is present currently. Patient states he felt a little short of breath. He states he has gotten sweaty on and off with these episodes he has had some nausea several days. He denies any syncope or lightheadedness. States that he started hurting all over. He does note he ran out of tramadol several days ago. He does still have his hypertensive medications metformin. Patient states no fevers or chills. He states he coughed up a small amount of blood. He has had nosebleeds in the past but does not appreciate that he had any. This was 1 brief area with a small amount. States he has had normal bowel movements, no black or bloody stools, he did note that this morning he also noted an area of swelling on the underside of his testicles which was also painful and hurts and seems to bulge out when he urinates. Patient states no discharge or penile pain. He was told he had some sort of spot in that area in the past possibly hydrocele but he does not recall the name. Patient denies any swelling of his extremities. Patient states has had prior back surgery, had heart catheterization in the past which was negative this was several years ago. Patient states has adverse reaction to Benadryl where his veins get very hot and red, denies tobacco, alcohol or recreational drugs. Primary care is through [facility]. He is accompanied by a friend today. Related Data Home Medications Medication Instructions Recorded Confirmed quetiapine 25 mg tablet 25 - 50 mg PO BEDTIME 09/29/22 07/24/23 tramadol 50 mg tablet 50 mg PO BID PRN Pain (Scale Score 07/24/23 07/24/23 7-10) Previous Rx's Medication Instructions Recorded amlodipine 5 mg tablet (Norvasc) 5 mg PO DAILY blood pressure #90 09/02/22 tabs blood sugar diagnostic (Advocate #100 ea 12/24/22 Test Strips) blood sugar diagnostic (Advocate #100 ea 12/24/22 Test Strips) lancets 28 gauge (1st Tier Unilet #100 ea 12/24/22 ComforTouch Lancet) naproxen 500 mg tablet 500 mg PO BID PRN pain #60 tabs 03/19/23 chlorthalidone 25 mg tablet 25 mg PO DAILY blood pressure #90 06/17/23 tabs losartan 100 mg tablet 100 mg PO DAILY blood pressure #90 06/17/23 tabs metformin 500 mg tablet,extended 1,000 mg (2 x 500 mg) PO BID #360 07/14/23 release 24 hr tabs tramadol 50 mg tablet 50 mg PO BID PRN pain #6 tabs 07/24/23 Allergies Allergy/AdvReac Type Severity Reaction Status Date / Time diphenhydramine Allergy Unknown Redness of Verified 07/24/23 11:36 [From BENADRYL] Skin gabapentin [GABAPENTIN] Allergy Unknown Drowsy Verified 07/24/23 11:36 Review of Systems Review of Systems ROS Unobtainable: All systems reviewed & are unremarkable except as noted in HPI and below Patient History Medical History Type 2 diabetes mellitus without complication, with no history of insulin use Hyperlipidemia Complex regional pain syndrome Post traumatic stress disorder (PTSD) Depression Anxiety TBI (traumatic brain injury) (~1985) Chronic back pain COVID-19 Vision disorder History of urinary incontinence (~06/2022) GI bleeding GERD (gastroesophageal reflux disease) Low testosterone (~2009) Benign essential HTN (~2009) Surgical History Anesthesia History of back surgery Family History Father Infection Mother Dementia Social History Smoking Status: Current every day smoker Smoking Status: Current every day smoker tobacco type: vaping alcohol intake frequency: other Substance Use Type: marijuana Exam Narrative Exam Narrative: GENERAL: Alert and oriented x three, well-appearing male in mild distress. No diaphoresis. HEENT: Head normocephalic, atraumatic, EOMI, pupils reactive, face symmetric, moist mucous membranes NECK: Supple, full range of motion CARDIOVASCULAR: Regular rate and rhythm without murmurs, rubs or gallops. No JVD. No swelling bilateral lower extremities. RESPIRATORY: Breath sounds equal bilaterally, no wheezes rales or rhonchi. No tachypnea accessory muscle use. No cough on examination. ABDOMEN: Soft, nontender. Normoactive bowel sounds all 4 quadrants. No guarding or rebound, rigidity, no mass : No CVA tenderness. Male: normal external examination, patient is circumcised, no penile discharge or lesions, testicles non-tender, no obvious palpable mass, lesion or ulceration. Patient indicates the areas on the underside of the testicles midline. Cremasteric reflex intact, no inguinal hernias noted. No rash, erythema or other changes. EXTREMITIES: Normal range of motion, no clubbing or edema. Neurovascularly intact NEUROLOGICAL: Cranial nerves II through XII grossly intact. Moving all extremities SKIN: Warm, dry, no petechiae, no rashes or lesions. Initial Vital Signs Initial Vital Signs: Vital Signs Temperature 98.6 F 07/24/23 11:36 Pulse Rate 96 H 07/24/23 11:36 Respiratory Rate 16 07/24/23 11:36 Blood Pressure 134/88 07/24/23 11:36 Pulse Oximetry 97 07/24/23 11:36 Oxygen Delivery Method Room Air 07/24/23 11:36 Course Orders Ordered: ED Orders 07/24/23 11:34 XR chest 1V Stat EKG-12 Lead Stat 07/24/23 11:56 Complete Blood Count AUTO DIFF Stat Comprehensive Metabolic Panel Stat D Dimer Stat Lipase Stat Magnesium Stat PTT Partial Thromboplastin Jeffery Stat Prothrombin Time INR Stat Troponin & CK Cardiac Panel Stat 07/24/23 13:36 US scrotum Stat 07/24/23 14:22 EKG-12 Lead Stat 07/24/23 14:25 Trop I [Troponin I] Stat Discontinued Medications Aspirin (Aspirin 81 Mg Chew Tab) 324 mg PO NOW ONE Stop: 07/24/23 11:35 Last Admin: 07/24/23 15:04 Dose: Not Given Documented By: ANGELA Tramadol HCl (Tramadol 50 Mg Tablet) 50 mg PO NOW ONE Stop: 07/24/23 14:00 Last Admin: 07/24/23 14:03 Dose: 50 mg Documented By: OSCAR Vital Signs Vital signs: Vital Signs - 8 hr 07/24/23 11:36 07/24/23 11:48 07/24/23 11:50 Temperature 98.6 F Pulse Rate 96 H 89 Respiratory Rate 16 Blood Pressure 134/88 151/82 H Pulse Oximetry 97 98 Oxygen Delivery Method Room Air 07/24/23 11:50 07/24/23 12:00 07/24/23 12:01 Temperature Pulse Rate 96 H 80 80 Respiratory Rate 20 19 14 Blood Pressure Pulse Oximetry 96 95 Oxygen Delivery Method Room Air 07/24/23 12:01 07/24/23 12:12 07/24/23 12:12 Temperature Pulse Rate 77 Respiratory Rate 18 Blood Pressure 133/87 119/73 Pulse Oximetry 96 Oxygen Delivery Method 07/24/23 12:30 07/24/23 12:30 07/24/23 13:15 Temperature Pulse Rate 73 73 Respiratory Rate 10 L Blood Pressure 111/72 Pulse Oximetry 95 97 Oxygen Delivery Method 07/24/23 13:30 07/24/23 13:44 07/24/23 13:44 Temperature Pulse Rate 74 72 Respiratory Rate 43 H Blood Pressure 137/79 Pulse Oximetry 97 96 Oxygen Delivery Method 07/24/23 14:00 07/24/23 14:02 07/24/23 14:02 Temperature Pulse Rate 67 68 Respiratory Rate 19 19 Blood Pressure 137/81 Pulse Oximetry 97 96 Oxygen Delivery Method 07/24/23 14:30 07/24/23 14:30 07/24/23 15:00 Temperature Pulse Rate 70 Respiratory Rate 17 Blood Pressure 116/70 118/79 Pulse Oximetry Oxygen Delivery Method 07/24/23 15:00 Temperature Pulse Rate 77 Respiratory Rate 9 L Blood Pressure Pulse Oximetry 95 Oxygen Delivery Method MDM - Chest Pain Lab Data 07/24/23 11:56 07/24/23 11:56 Labs: Lab Results 07/24/23 07/24/23 Range/Units 11:56 14:25 WBC 5.6 (4.5-11.0) X10^3/uL RBC 5.05 (4.5-5.9) X10^6/uL Hgb 15.4 (13.5-17.5) g/dL Hct 44.6 (41-53) % MCV 88.3 (80-100) fL MCH 30.5 (26-34) PG MCHC 34.5 (30-36) % RDW 12.8 (11.6-14.8) % Plt Count 190 (150-400) X10^3/uL Neut % (Auto) 62.8 (50-75) % Lymph % (Auto) 25.2 (25-40) % [place] % (Auto) 6.8 (3-14) % Eos % (Auto) 4.7 H (2-4) % Baso % (Auto) 0.5 (0-2) % Neut # (Auto) 3500 (4203-5338) /uL Lymph # (Auto) 1400 (2275-5889) /uL [place] # (Auto) 400 (0-900) /uL Eos # (Auto) 300 (0-450) /uL Baso # (Auto) 0 (0-100) /uL PT 12.6 H (9.4-12.5) SECONDS INR 1.1 (0.9-1.3) APTT 29 (25.1-36.5) SECONDS D-Dimer 372 (<500) ng/ml Sodium 134 L (137-145) mmol/L Potassium 3.4 (3.4-5.1) mmol/L Chloride 97 L (98-107) mmol/L Carbon Dioxide 28 (22-32) mmol/L BUN 11 (9-20) mg/dL Creatinine 0.69 (0.66-1.25) mg/dL Estimated GFR > 60 (>60) mL/min BUN/Creatinine Ratio 15.9 (6-22) Glucose 259 H (70-100) mg/dL Calcium 9.2 (8.4-10.2) mg/dL Magnesium 1.7 (1.6-2.3) mg/dL Total Bilirubin 0.9 (0.2-1.3) mg/dL AST 77 H (17-59) IU/L ALT 108 H (<50) IU/L Alkaline Phosphatase 73 (38-126) U/L Total Creatine Kinase 106 (55-170) U/L Troponin I < 0.012 < 0.012 (0.01-0.034) ng/mL Total Protein 7.7 (6.3-8.2) g/dL Albumin 4.3 (3.5-5.0) g/dL Globulin 3.4 (1.7-4.1) g/dL Albumin/Globulin Ratio 1.3 (1.0-2.8) Lipase 76 (23-300) U/L Urine Dip Bedside Urine Glucose 1000 mg/dl Bedside Urine Bilirubin - Negative Bedside Urine Ketone - Negative Urine Specific [place] 1.010 Bedside Urine Occult Blood - Negative Bedside Urine pH 7.0 Bedside Urine Protein - Negative Bedside Urine Urobilinogen - Negative Bedside Urine Nitrite - Negative Bedside Urine Leukocytes - Negative Esterase Imaging Data Chest x-ray: Radiologist's Impression: [address] [address] XRay Report Signed Patient: Layton Arvizu MR#: [id number] : 1970 Acct:[id number] Age/Sex: 53 / M Date of Service: 07/24/23 Loc: ED Accession Number: [id number] Procedure: XR chest 1V Ordering Provider: Leonila Martin D.O. PROCEDURE: XR CHEST 1V INDICATIONS: chest pain TECHNIQUE: One view of the chest was acquired. COMPARISON: [facility], CHEST 1 VIEW, 02/03/2016, 12:17. FINDINGS: Surgical changes and devices: None. Lungs and pleura: Lungs are clear. No pleural effusions or pneumothorax. Mediastinum: Mediastinal contours appear normal. Heart size is normal. Bones and chest wall: No suspicious bony lesions. Overlying soft tissues appear unremarkable. IMPRESSION: No acute cardiopulmonary abnormality is seen. Dictated by: Vesta Wilcox M.D. on 07/24/2023 at 12:28 Approved by: Vesta Wilcox M.D. on 07/24/2023 at 12:28 scrotum US: Radiologist's Impression: [address] [address] Ultrasound Report Signed Patient: Layton Arvizu MR#: [id number] : 1970 Acct:[id number] Age/Sex: 53 / M Date of Service: 07/24/23 Loc: ED Accession Number: [id number] Procedure: US scrotum Ordering Provider: Leonila Martin D.O. PROCEDURE: US SCROTUM INDICATIONS: PAIN INFERIOR TESTICLE. WORSE WITH URINATION. TECHNIQUE: Real-time scanning was performed of the scrotum and testicles, with image documentation. Color and pulse Doppler interrogation was performed of both testicles. COMPARISON: None. FINDINGS: Right: Testicle is normal in size at 5.7 x 3.9 x 2.6 cm, and homogenous in echotexture. Epididymis is normal in overall size and morphology. No hydrocele or varicoceles. Overlying scrotal skin is normal in thickness. Left: Testicle is normal in size at 5.8 x 3.6 x 2.5 cm, and homogeneous in echotexture. Epididymis is normal in overall size and morphology. No hydrocele. There is likely a 4 mm varicocele just lateral to the body of the epididymis. Overlying scrotal skin is normal in thickness. Doppler: Color and pulse Doppler demonstrate normal and symmetric arterial flow in both testicles. IMPRESSION: 1. No sonographic abnormalities visualized in the area palpated by the patient. 2. Small left varicocele. 3. Otherwise unremarkable testicular ultrasound. Dictated by: Vesta Wilcox M.D. on 07/24/2023 at 15:01 Approved by: Vesta Wilcox M.D. on 07/24/2023 at 15:04 ECG Data Attestation: I personally reviewed and interpreted this ECG as follows: Prior ECG tracings: available for review Interpretation: Sinus rhythm rate 80 NC 160 QRS of 92 QTC of 412. No acute ST changes appreciated. Patient has prior from 09/23/2022 with no acute or dynamic changes. EKG sinus rhythm rate of 72 NC 170 QRS of [address] elevation. MDM Narrative Medical decision making narrative: 53-year-old male with risk factors including hypertension, diabetes who presents with complaint of chest pain but also some scrotal pain. Patient states he did run out of his pain medications several days ago. He has had chest pain on and off for several days most recently this morning. Patient states has had a heart catheterization in the past some years ago and was negative. He has had issues with GI bleeds in the past secondary to overuse of NSAIDs. Patient also notes some discomfort with the underside of the scrotum and when he urinates feels like bulges and is painful. Exam overall is benign. Lab work includes CBC which changes, CMP with normal renal function electrolytes glucose is 259. INR 1.1, Mag is 1.7 with an AST of 77 and ALT of 108. Initial troponin is negative. Chest x-ray is negative for acute change. Was noted patient did have a CT angio chest abdomen pelvis 09/23/2022 for evaluation for dissection which was negative. 2 hour troponin was repeated and is negative. No dynamic changes noted. poc urine is negative. Patient notes no sexual contacts. States concerns for STI. Scrotal US shows small left varicocele. EKG shows no acute change on in comparison priors, repeat EKG shows no new elevation. Repeat troponin is negative. Patient requesting medication for scrotal pain, states no chest pain. Given home dose here in department. Patient does ask if he can have a short term script of 6 tablets until he sees his pain management team on Thursday. Reviewed ultrasound findings we will give referral for Urology as needed. Reviewed his findings here. Reviewed his cardiac findings he does have some risk factors he states he plans to follow up with primary care and has follow up shortly. Discharge Plan Departure Patient Disposition: Home Clinical Impression: Chest pain, Pain in scrotum, Varicocele present on ultrasound of scrotum Instructions: DI for Chest Pain Activity Restrictions/Additional Instructions: Follow up with your physician for recheck. Your US today shows a small left varicocele. This may or may not be the source of your discomfort but no other changes were noted today on ultrasound or workup. Please continue your home medications as prescribed. A short term prescription for your tramadol was sent to [facility] in [place]. Please let your pain management team know as you may have a pain contract. Please return for new or worsening symptoms increasing or new chest pain, shortness of breath, lightheadedness or passing out, new swelling in her extremities, persistent diaphoresis or nausea or vomiting or other new or concerning changes. Prescriptions: New tramadol 50 mg tablet 50 mg PO BID PRN (Reason: pain) Qty: 6 0RF No Action naproxen 500 mg tablet 500 mg PO BID PRN (Reason: pain) Qty: 60 11RF Rx Instructions: with food and full glass of water chlorthalidone 25 mg tablet 25 mg PO DAILY Qty: 90 1RF losartan 100 mg tablet 100 mg PO DAILY Qty: 90 1RF metformin 500 mg tablet extended release 24 hr 1,000 mg PO BID Qty: 360 3RF quetiapine 25 mg tablet 25 - 50 mg PO BEDTIME (DME) Advocate Test Strips Strip See Rx Instructions .ROUTE .MEDSUPPLY Qty: 100 3RF Rx Instructions: As directed, once daily as needed (DME) lancets [1st Tier Unilet ComforTouch] 28 gauge misc See Rx Instructions .ROUTE .MEDSUPPLY Qty: 100 3RF Rx Instructions: As directed, once daily as neededd (DME) Advocate Test Strips Strip See Rx Instructions .ROUTE .MEDSUPPLY Qty: 100 3RF Rx Instructions: As directed, once daily as needed amlodipine [Norvasc] 5 mg tablet 5 mg PO DAILY Qty: 90 3RF tramadol 50 mg tablet 50 mg PO BID PRN (Reason: Pain (Scale Score 7-10)) Referrals: Ayana Celis MD [Physician] - Nino Scott DO [Primary Care Provider] - Stand Alone Forms: Patient Portal/API
--- NOTE | 2023-07-24 13:36 | DI.US.S_ITS ---
PROCEDURE: US SCROTUM INDICATIONS: PAIN INFERIOR TESTICLE. WORSE WITH URINATION. TECHNIQUE: Real-time scanning was performed of the scrotum and testicles, with image documentation. Color and pulse Doppler interrogation was performed of both testicles. COMPARISON: None. FINDINGS: Right: Testicle is normal in size at 5.7 x 3.9 x 2.6 cm, and homogenous in echotexture. Epididymis is normal in overall size and morphology. No hydrocele or varicoceles. Overlying scrotal skin is normal in thickness. Left: Testicle is normal in size at 5.8 x 3.6 x 2.5 cm, and homogeneous in echotexture. Epididymis is normal in overall size and morphology. No hydrocele. There is likely a 4 mm varicocele just lateral to the body of the epididymis. Overlying scrotal skin is normal in thickness. Doppler: Color and pulse Doppler demonstrate normal and symmetric arterial flow in both testicles. IMPRESSION: 1. No sonographic abnormalities visualized in the area palpated by the patient. 2. Small left varicocele. 3. Otherwise unremarkable testicular ultrasound. Dictated by: Vesta Wilcox M.D. on 07/24/2023 at 15:01 Approved by: Vesta Wilcox M.D. on 07/24/2023 at 15:04
[2023-07-24] MEDS: TRAMADOL 50 MG TABLET PO (14:03)
[2023-07-24 14:32] LABS: D Dimer 372 ng/ml (<500)
[2023-07-24 14:55] LABS: Troponin I < 0.012 ng/mL (0.01-0.034)
== END 2023-07-24 15:37 | disposition home or self-care (01) ==
PROVIDERS: Emergency Provider Emergency Medicine; PCP Family Medicine
DX: R07.9 Chest pain, unspecified (principal); N50.82 Scrotal pain; I86.1 Scrotal varices
CPT/HCPCS: 36415; 71045; 76870; 80053; 81003; 82550; 83690; 83735; 84484; 85025; 85379; 85610; 85730; 93005; 93010; 93975; 99284

== ENCOUNTER 2024-02-03 10:32 | Emergency (ER) | payer OTHER, MEDICAID, SELFPAY ==
[2024-02-03] VITALS (9 sets, daily range): BP systolic 119–128; BP diastolic 69–81; PULSE 65–91; RESP 14–20; TEMP 36.9; O2SAT 94–97; BMI 32.8
--- NOTE | 2024-02-03 12:28 | DI.CT.S_ITS ---
PROCEDURE: CT ABDOMEN PELVIS W CON INDICATIONS: lower abd pain and cramping TECHNIQUE: After the administration of intravenous contrast, axial sections acquired from the lung bases to the pubic symphysis. Coronal and sagittal reformats were performed. For radiation dose reduction, the following was used: automated exposure control, adjustment of mA and/or kV according to patient size. COMPARISON: None. FINDINGS: Image quality: Diagnostic. Lower Chest: No significant findings. ABDOMEN: Liver: No solid mass. Mild diffuse hepatic steatosis. Gallbladder: No radiopaque gallstones or wall thickening. Biliary ducts: No biliary dilation. Pancreas: No ductal dilation. Spleen: Size is within normal limits. Adrenal Glands: No adrenal nodules. Kidneys and Ureters: No hydronephrosis. No solid mass. No complex renal cystic lesion which requires follow up. 3 mm nonobstructing left lower pole renal stone. Stomach and Bowel: Normal colonic caliber, without significant wall thickening. Normal appendix Peritoneum: No abnormal intraperitoneal fluid. No free air. Ventral Wall: No significant ventral hernia. Abdominal Nodes: No retroperitoneal or mesenteric adenopathy by size criteria. Vessels: Aorta and inferior vena cava are normal in size. Question bilateral fibromuscular dysplasia of the renal arteries. This is not definite. PELVIS: Pelvic Organs: Unremarkable. Bladder: No bladder wall thickening, accounting for underdistention. Pelvic Nodes: No enlarged lymph nodes. Miscellaneous: Fat containing left inguinal hernia. Bones: No aggressive osseous abnormality. IMPRESSION: 1. No acute abdominal process. 2. Question bilateral renal artery fibromuscular dysplasia. This is not definite. In 3. Mild diffuse hepatic steatosis. 4. 3 mm nonobstructing left middle pole renal stone. Fat containing left inguinal hernia. Dictated by: Thanh Early M.D. on 02/03/2024 at 14:40 Approved by: Thanh Early M.D. on 02/03/2024 at 14:54
--- NOTE | 2024-02-03 12:43 | DI.US.S_ITS ---
PROCEDURE: US SCROTUM INDICATIONS: bilateral testicular pain TECHNIQUE: Real-time scanning was performed of the scrotum and testicles, with image documentation. Color and pulse Doppler interrogation was performed of both testicles. COMPARISON: [facility], , US SCROTUM, 07/24/2023, 14:03. FINDINGS: Right: Testicle is normal in size at 5.2 x 2.1 x 3.3 cm, and homogenous in echotexture. Epididymis is normal in overall size and morphology. No hydrocele or varicoceles. Overlying scrotal skin is normal in thickness. Left: Testicle is normal in size at 5.3 x 2.3 x 3.1 cm, and homogeneous in echotexture. Epididymis is normal in overall size and morphology. No hydrocele or varicoceles. Overlying scrotal skin is normal in thickness. Doppler: Color and pulse Doppler demonstrate normal and symmetric arterial flow in both testicles. IMPRESSION: Normal testicular ultrasound. Dictated by: Zaid Moreira M.D. on 02/03/2024 at 13:17 Approved by: Zaid Moreira M.D. on 02/03/2024 at 13:21
--- NOTE | 2024-02-03 12:45 | ED.MALEGU ---
HPI - Male Genitourinary General Chief complaint: Urogenital-Male Stated complaint: back pain Time Seen by Provider: 02/03/24 11:39 Source: patient Mode of arrival: Ambulatory History of Present Illness HPI Narrative: patient past medical history of hypertension, chronic low back pain comes into the ED from home for evaluation of multiple complaints. Patient states that over the past several weeks he has been experiencing lower abdominal states that it is sharp and shooting in nature no radiation nothing making it better or worse. Denies any recent trauma or surgeries. He states that he has concerns for colon cancer, states that he does have an appointment with his primary care doctor next week in order to set up an appointment with GI for this. States that approximately 10-15 years ago did have a colonoscopy which was normal. Patient states that he is worried he might have colon cancer due to the fact that he is also having intermittent testicular pain. States that he does have a history of a varicocele/hydroceles, however states that due to his persistent symptoms decided come into the ER for further evaluation treatment. Patient denies any headache visual disturbance chest pain shortness of breath fever chills nausea vomiting or any other GI/ some time. Not on a blood thinner inhalers travel no known sick contacts. Related Data Home Medications Medication Instructions Recorded Confirmed quetiapine 25 mg tablet 25 - 50 mg PO BEDTIME 09/29/22 07/24/23 tramadol 50 mg tablet 50 mg PO BID PRN Pain (Scale Score 07/24/23 07/24/23 7-10) Previous Rx's Medication Instructions Recorded blood sugar diagnostic (Advocate #100 ea 12/24/22 Test Strips) blood sugar diagnostic (Advocate #100 ea 12/24/22 Test Strips) lancets 28 gauge (1st Tier Unilet #100 ea 12/24/22 ComforTch Lancet) naproxen 500 mg tablet 500 mg PO BID PRN pain #60 tabs 03/19/23 metformin 500 mg tablet,extended 1,000 mg (2 x 500 mg) PO BID #360 07/14/23 release 24 hr tabs tramadol 50 mg tablet 50 mg PO BID PRN pain #6 tabs 07/24/23 amlodipine 5 mg tablet (Norvasc) 5 mg PO DAILY blood pressure #90 09/11/23 tabs chlorthalidone 25 mg tablet 25 mg PO DAILY for blood pressure 12/11/23 #90 tabs losartan 100 mg tablet 100 mg PO DAILY for blood pressure 12/11/23 #90 tabs Allergies Allergy/AdvReac Type Severity Reaction Status Date / Time diphenhydramine Allergy Unknown Redness of Verified 02/03/24 10:37 [From BENADRYL] Skin gabapentin [GABAPENTIN] Allergy Unknown Drowsy Verified 02/03/24 10:37 Review of Systems Review of Systems Narrative: HEENT: Denies headache, eye drainage, eye irritation, head trauma, sore throat, voice change Cardiovascular: Denies any chest pain, palpitations, shortness of breath, tachycardia, bradycardia Respiratory: Denies any shortness of breath, cough, wheeze, stridor GI/: Denies any, nausea, vomiting, diarrhea, bright red blood per rectum, melanotic stools, urinary frequency, urinary retention, dysuria, hematuria, Does endorse lower abdominal pain testicular pain MSK: Denies any joint pain, muscle pains Skin: Denies any rashes, lesions Neuro: Denies any headache, lightheadedness, dizziness, fainting, weakness Psych: Denies SI/HI Patient History Medical History Type 2 diabetes mellitus without complication, with no history of insulin use Hyperlipidemia Complex regional pain syndrome Post traumatic stress disorder (PTSD) Depression Anxiety TBI (traumatic brain injury) (~1985) Chronic back pain COVID-19 Vision disorder History of urinary incontinence (~06/2022) GI bleeding GERD (gastroesophageal reflux disease) Low testosterone (~2009) Benign essential HTN (~2009) Surgical History Anesthesia History of back surgery Family History Father Infection Mother Dementia Social History Smoking Status: Unknown if ever smoked Smoking Status: Unknown if ever smoked tobacco type: vaping alcohol intake frequency: holidays/special occasions only Substance Use Type: does not use Exam Narrative Exam Narrative: General: Cooperative, comfortable, well-developed, not in acute distress HEENT: Normocephalic, atraumatic, PERRLA, normal sclera, eyelids normal, Neck: Active full range of motion, atraumatic Chest: Normal to inspection, negative crepitus, no overlying erythema ecchymosis Respiratory: Normal respiratory effort, not in acute respiratory distress, clear to auscultation bilaterally negative cough, wheeze, tachypnea, rhonchi, rales Cardiology: Regular rate rhythm negative gallop, murmur, rubs GI/: Normal to inspection, soft, nonrigid, Mild tenderness to palpation lower abdomen, no tenderness to palpation over the scrotum, no overlying erythema crepitus, no drainage to the opening of the meatus. hemoccult negative, no internal or external signs of hemorrhoids no anal fissures MSK: Full range of active range of motion of all 4 extremities, atraumatic Skin: No rashes lesions noted Neuro: Alert awake oriented x3, moves all 4 extremities spontaneously, cranial nerves intact, able to answer all questions appropriately follows commands appropriately Psych: Cooperative, negative suicidal or homicidal ideations Initial Vital Signs Initial Vital Signs: Vital Signs Temperature 98.5 F 02/03/24 10:37 Pulse Rate 91 H 02/03/24 10:37 Respiratory Rate 14 02/03/24 10:37 Blood Pressure 126/78 02/03/24 10:37 Pulse Oximetry 96 02/03/24 10:37 Oxygen Delivery Method Room Air 02/03/24 10:37 Course Orders Ordered: ED Orders 02/03/24 12:28 CT abdomen pelvis w con Stat 02/03/24 12:43 US scrotum Stat 02/03/24 13:20 Complete Blood Count AUTO DIFF Stat Comprehensive Metabolic Panel Stat Lipase Stat MAG [Magnesium] Stat Discontinued Medications Sodium Chloride (Normal Saline 0.9%) 1,000 mls @ 1,000 mls/hr IV BOLUS ONE Stop: 02/03/24 13:27 Last Infusion: 02/03/24 14:36 Dose: 1,000 mls/hr Ketorolac Tromethamine (Ketorolac 30 Mg/Ml Vial) 30 mg IV NOW ONE Stop: 02/03/24 12:29 Last Admin: 02/03/24 13:24 Dose: 30 mg Vital Signs Vital signs: Vital Signs - 8 hr 02/03/24 10:37 02/03/24 12:10 02/03/24 12:10 Temperature 98.5 F Pulse Rate 91 H 73 Respiratory Rate 14 Blood Pressure 126/78 119/69 Pulse Oximetry 96 94 Oxygen Delivery Method Room Air 02/03/24 13:30 02/03/24 13:31 02/03/24 13:31 Temperature Pulse Rate 69 67 Respiratory Rate Blood Pressure 128/81 Pulse Oximetry 97 97 Oxygen Delivery Method Room Air Room Air 02/03/24 14:00 Temperature Pulse Rate 78 Respiratory Rate Blood Pressure Pulse Oximetry 97 Oxygen Delivery Method Room Air MDM - Male Genitourinary Differential Diagnosis Differential diagnosis: Likely urinary tract infection, epididymitis and other (Diverticulitis, colitis) Medical Records Attestation: I reviewed the patient's medical records. Lab Data Attestation: I reviewed the patient's lab results. 02/03/24 13:20 02/03/24 13:20 Labs: Lab Results 02/03/24 Range/Units 13:20 WBC 7.5 (4.5-11.0) X10^3/uL RBC 4.77 (4.5-5.9) X10^6/uL Hgb 14.4 (13.5-17.5) g/dL Hct 41.0 (41-53) % MCV 86.0 (80-100) fL MCH 30.1 (26-34) PG MCHC 35.0 (30-36) % RDW 12.0 (11.6-14.8) % Plt Count 243 (150-400) X10^3/uL Neut % (Auto) 54.2 (50-75) % Lymph % (Auto) 31.7 (25-40) % [place] % (Auto) 8.6 (3-14) % Eos % (Auto) 4.9 H (2-4) % Baso % (Auto) 0.6 (0-2) % Neut # (Auto) 4100 (7107-2531) /uL Lymph # (Auto) 2400 (0019-5656) /uL [place] # (Auto) 600 (0-900) /uL Eos # (Auto) 400 (0-450) /uL Baso # (Auto) 0 (0-100) /uL Sodium 134 L (137-145) mmol/L Potassium 3.6 (3.4-5.1) mmol/L Chloride 99 (98-107) mmol/L Carbon Dioxide 27 (22-32) mmol/L BUN 14 (9-20) mg/dL Creatinine 0.75 (0.66-1.25) mg/dL Estimated GFR > 60 (>60) mL/min BUN/Creatinine Ratio 18.7 (6-22) Glucose 165 H (70-100) mg/dL Calcium 8.8 (8.4-10.2) mg/dL Magnesium 1.8 (1.6-2.3) mg/dL Total Bilirubin 0.8 (0.2-1.3) mg/dL AST 44 (17-59) IU/L ALT 63 H (<50) IU/L Alkaline Phosphatase 75 (38-126) U/L Total Protein 6.9 (6.3-8.2) g/dL Albumin 4.2 (3.5-5.0) g/dL Globulin 2.7 (1.7-4.1) g/dL Albumin/Globulin Ratio 1.6 (1.0-2.8) Lipase 151 (23-300) U/L Urine Dip Bedside Urine Glucose 1000 mg/dl Bedside Urine Bilirubin - Negative Bedside Urine Ketone - Negative Urine Specific Docena 1.015 Bedside Urine Occult Blood - Negative Bedside Urine pH 6.5 Bedside Urine Protein - Negative Bedside Urine Urobilinogen - Negative Bedside Urine Nitrite - Negative Bedside Urine Leukocytes - Negative Esterase Imaging Data US testicle : Attestation: I personally reviewed and interpreted this imaging study as follows: Radiologist's Impression: IMPRESSION: Normal testicular ultrasound. [facility] Narrative Medical decision making narrative: Patient is a 53-year-old male with past medical history of hypertension, diabetes, chronic low back pain, came in complaining of lower abdominal pain and testicular pain. Ultrasound of the testicles without any acute findings, urinalysis not consistent with an acute urinary tract infection. Patient Hemoccult negative. CT scan showed did not show any acute findings, however incidental findings were noted which patient was informed about and verbalized understanding of following up in an outpatient setting. Patient repeat exam is nontender non peritoneal nature, patient was given strict return precautions and agrees to being discharged home with outpatient follow-up. Discharge Plan Departure Clinical Impression: Abdominal pain Qualifiers: Abdominal location: lower abdomen, unspecified Qualified Code(s): R10.30 - Lower abdominal pain, unspecified Instructions: Colonoscopy Activity Restrictions/Additional Instructions: Please follow-up with your primary care doctor for your scheduled appointment, please make an appointment with gastroenterology to schedule your repeat colonoscopy. Please follow-up with urology given history of testicular pain. Prescriptions: No Action naproxen 500 mg tablet 500 mg PO BID PRN (Reason: pain) Qty: 60 11RF Rx Instructions: with food and full glass of water metformin 500 mg tablet extended release 24 hr 1,000 mg PO BID Qty: 360 3RF amlodipine [Norvasc] 5 mg tablet 5 mg PO DAILY Qty: 90 3RF losartan 100 mg tablet 100 mg PO DAILY Qty: 90 0RF chlorthalidone 25 mg tablet 25 mg PO DAILY Qty: 90 0RF quetiapine 25 mg tablet 25 - 50 mg PO BEDTIME (DME) Advocate Test Strips Strip See Rx Instructions .ROUTE .MEDSUPPLY Qty: 100 3RF Rx Instructions: As directed, once daily as needed (DME) lancets [1st Tier Unilet ComforTouch] 28 gauge misc See Rx Instructions .ROUTE .MEDSUPPLY Qty: 100 3RF Rx Instructions: As directed, once daily as neededd (DME) Advocate Test Strips Strip See Rx Instructions .ROUTE .MEDSUPPLY Qty: 100 3RF Rx Instructions: As directed, once daily as needed tramadol 50 mg tablet 50 mg PO BID PRN (Reason: Pain (Scale Score 7-10)) tramadol 50 mg tablet 50 mg PO BID PRN (Reason: pain) Qty: 6 0RF Referrals: Chucky Loya DO [Emergency Provider] - Lorenzo Kellogg MD [Physician] - Nino Scott DO [Primary Care Provider] -
[2024-02-03] MEDS: KETOROLAC 30 MG/ML VIAL IV (13:24)
[2024-02-03] MEDS: SODIUM CHLORIDE 0.9% 1,000 ML 1000 ML IV (13:26)
[2024-02-03 13:30] LABS: Add Manual Diff / Slide Review NO; Basophils Absolute Auto 0 /uL (0-100); Basophils Percent Auto 0.6 % (0-2); Eosinophils Absolute Auto 400 /uL (0-450); Eosinophils Percent Auto 4.9 % (2-4); Hemoglobin 14.4 g/dL (13.5-17.5); Lymphocytes Absolute Auto 2400 /uL (1100-4500); Lymphocytes Percent Auto 31.7 % (25-40); Mean Corpuscular Hemoglobin 30.1 PG (26-34); Monocytes Absolute Auto 600 /uL (0-900); Monocytes Percent Auto 8.6 % (3-14); Neutrophils Absolute Auto 4100 /uL (1500-7000); Neutrophils Percent Auto 54.2 % (50-75); Platelet Count 243 X10^3/uL (150-400); Red Blood Cell Count 4.77 X10^6/uL (4.5-5.9); White Blood Cell Count 7.5 X10^3/uL (4.5-11.0)
[2024-02-03 13:42] LABS: Alanine Aminotransferase 63 IU/L (<50); Albumin 4.2 g/dL (3.5-5.0); Albumin Globulin Ratio 1.6 (1.0-2.8); Alkaline Phosphatase 75 U/L (38-126); Aspartate Aminotransferase 44 IU/L (17-59); BUN Creatinine Ratio 18.7 (6-22); Bilirubin Total 0.8 mg/dL (0.2-1.3); Blood Urea Nitrogen 14 mg/dL (9-20); Calcium 8.8 mg/dL (8.4-10.2); Carbon Dioxide 27 mmol/L (22-32); Chloride 99 mmol/L (98-107); Estimated Glomerular Filt Rate > 60 mL/min (>60); Globulin 2.7 g/dL (1.7-4.1); Glucose 165 mg/dL (70-100); HEMOLYSIS 39 (0-50); Lipase 151 U/L (23-300); Magnesium 1.8 mg/dL (1.6-2.3); Potassium 3.6 mmol/L (3.4-5.1); Sodium 134 mmol/L (137-145); Total Protein 6.9 g/dL (6.3-8.2)
== END 2024-02-03 15:17 | disposition home or self-care (01) ==
PROVIDERS: Emergency Provider Student in an Organized Health Care Education/Training Program; PCP Family Medicine
DX: R10.30 Lower abdominal pain, unspecified (principal); Z87.438 Personal history of other diseases of male genital organs
CPT/HCPCS: 36415; 74177; 76870; 80053; 81003; 83690; 83735; 85025; 96361; 96374; 99284; J1885

== ENCOUNTER 2024-07-25 12:00 | Day surgery (SDC) | payer OTHER, MEDICAID, SELFPAY ==
--- NOTE | 2024-07-25 | PATH_ITS ---
[facility] Accession Number: [id number] No. of containers..02 Tissue . 01 Material submitted: . PART A: colon - SIGMOID COLON POLYP PART B: rectum - RECTAL POLYP . 01 Diagnosis: A. SIGMOID COLON POLYP: Tubulovillous adenoma. Negative for high-grade dysplasia or malignancy. . B. RECTAL POLYP: Tubular adenoma. MRV 07/26/2024 1349 Local . 01 Electronically signed: . Juan Alberto Hatch MD, PhD, Pathologist NPI- [id number] . 01 Gross description: . Part A: SIGMOID COLON POLYP: Received in formalin are multiple fragment(s) of guzman, soft tissue measuring 0.1 x 0.1 x 0.1 cm to 0.8 x 0.7 x 0.6 cm submitted entirely in 1 cassette(s) Part B: RECTAL POLYP: Received in formalin is 1 fragment(s) of guzman, soft tissue measuring 1.3 x 0.5 x 0.4 cm submitted entirely in 1 cassette(s) /DELVIN 07/26/2024 0126 Local . 01 Pathologist provided ICD-10: D12.5, D12.8 . 01 CPT . 907907, 390188 Specimen Comment: A courtesy copy of this report has been sent to [facility] Performed at: [address] [address], [place], [place] [id number] MD Naveed Reed MD Phone: [phone]
[2024-07-25 12:36] VITALS: BP 126/74; PULSE 82; RESP 16; TEMP 36.2
[2024-07-25] MEDS: SODIUM CHLORIDE 0.9% 1,000 ML 1000 ML IV (12:36)
--- NOTE | 2024-07-25 12:58 | P.HP_ITS ---
History of Present Illness History of Present Illness Date Patient Seen: 07/25/24 Time Patient Seen: 12:58 Chief complaint: SDC Narrative: 54-year-old white male presents for colon screening. He had an incomplete colonoscopy approximately 10-15 years ago. He had an ER visit last January with crampy abdominal pain which has since resolved. [facility] Medical History Type 2 diabetes mellitus without complication, with no history of insulin use Hyperlipidemia Complex regional pain syndrome Post traumatic stress disorder (PTSD) Depression Anxiety TBI (traumatic brain injury) (~1985) Chronic back pain COVID-19 Vision disorder History of urinary incontinence (~06/2022) GI bleeding GERD (gastroesophageal reflux disease) Low testosterone (~2009) Benign essential HTN (~2009) Surgical History Anesthesia History of back surgery Family History Father Infection Mother Dementia Social History Smoking Status: Unknown if ever smoked alcohol intake: never Meds Home Medications and Allergies Home Medications Medication Instructions Recorded Confirmed Type blood sugar diagnostic (Advocate #100 ea 12/24/22 12/24/22 Rx Test Strips) blood sugar diagnostic (Advocate #100 ea 12/24/22 12/24/22 Rx Test Strips) lancets 28 gauge (1st Tier Unilet #100 ea 12/24/22 12/24/22 Rx ComforTouch Lancet) naproxen 500 mg tablet 500 mg PO BID PRN pain #60 tabs 03/19/23 07/24/23 Rx metformin 500 mg tablet,extended 1,000 mg (2 x 500 mg) PO BID #360 07/14/23 07/25/24 Rx release 24 hr tabs tramadol 50 mg tablet 50 mg PO BID PRN Pain (Scale Score 07/24/23 07/24/23 History 7-10) tramadol 50 mg tablet 50 mg PO BID PRN pain #6 tabs 07/24/23 Rx amlodipine 5 mg tablet (Norvasc) 5 mg PO DAILY blood pressure #90 09/11/23 Rx tabs chlorthalidone 25 mg tablet 25 mg PO DAILY for blood pressure 12/11/23 07/25/24 Rx #90 tabs losartan 100 mg tablet 100 mg PO DAILY for blood pressure 03/16/24 Rx #90 tabs sodium,potassium,mag sulfates 17.5 See Rx Instructions PO .COMPLEX 07/14/24 Rx gram-3.13 gram-1.6 gram oral soln #354 mL (Suprep Bowel Prep Kit) amlodipine 5 mg tablet 5 mg PO DAILY blood pressure 07/25/24 07/25/24 History losartan 100 mg tablet 100 mg PO DAILY blood pressure 07/25/24 07/25/24 History tramadol 50 mg tablet 50 mg PO Q12H PRN Pain (Scale 07/25/24 07/25/24 History Score 7-10) Allergies Allergy/AdvReac Type Severity Reaction Status Date / Time diphenhydramine Allergy Unknown Redness of Verified 07/25/24 12:24 [From BENADRYL] Skin gabapentin [GABAPENTIN] Allergy Unknown Drowsy Verified 07/25/24 12:24 Review of Systems Review of Systems ROS: Yes All systems reviewed with the patient and are negative except as otherwise documented Exam Vital Signs (past 8 hours): - 07/25/24 12:36 Temperature 97.2 F L Pulse Rate 82 Respiratory Rate 16 Blood Pressure 126/74 Oxygen Delivery Method Room Air Oxygen Delivery Method Room Air Narrative Exam Narrative: Gen: NAD, sitting comfortably in bed, appears well HEENT: Sclera are anicteric, head is normocephalic and atraumatic, trachea is midline. CV: RRR, no JVD Resp: clear to auscultation bilaterally, equal chest wall movement bilaterally Abd: soft, nontender, normoactive bowel sounds Ext: no edema, full range of motion Neuro: Cranial nerves II-XII grossly intact, no focal deficits Skin: No erythema or ecchymosis Assessment & Plan Assessment and plan (1) Colon cancer screening: Status: Acute Assessment & Plan narrative: Patient presents for colonoscopy Risks, benefits, alternatives to colonoscopy explained, including but not limited to bowel perforation or other serious complication requiring surgery at less than 1 in 5000 colonoscopies, abdominal pain, cramping or bleeding and less than 1% of colonoscopies, and the chances that we find a diagnosis that would require further intervention of about 2%. Patient agrees to proceed. Time-Based Coding :: [TOTAL MINUTES] spent with patient and on the chart (including review of chart, obtaining history, exam, reviewing outside data, placing orders, documenting exam and treatment plan, and counseling patient) on [DATE].
--- NOTE | 2024-07-25 13:32 | PM.OP.COLON ---
Operative Date/Time/Diagnoses Date of procedure: 07/25/24 Time of procedure: 13:32 Pre-op diagnosis: Colon screening, previous incomplete colonoscopy Post-op diagnosis: other (1. Sigmoid polyp 2. Rectal polyp) Procedure & Clinicians Study performed: Colonoscopy with cold snare polypectomy of sigmoid polyp and rectal polyp, hemostatic clip placement on sigmoid polyp stalk Same procedure as scheduled: Yes Indications: Colon screening Surgeon: Zachery Caba Procedure Notes SCOAP/Timeout: Performed Procedure in detail: Time-out was performed. Mac was induced. Patient was placed in left lateral decubitus position. The perineum was inspected without any gross abnormality. Lubricated pediatric colonoscope was inserted and advanced to the cecum. The terminal ileum was intubated. Abdominal pressure and stiffening wire were required to reach the cecum. The colonoscope was withdrawn slowly inspecting the circumference of the colon. There was a greater than 1 cm polyp in the sigmoid colon removed with cold snare. The stalk of the polyp had a pulsatile vessel which was controlled with a hemostatic clip. This polyp was retrieved. There was an additional rectal polyp removed with cold snare also retrieved. Very small polyps may have been missed, prep quality was adequate. Retroflexed view of the rectum showed small, non prolapsed nonbleeding internal hemorrhoids. The scope was withdrawn the patient was taken to PACU in good condition. Scope withdrawal time: 11 Sedation minutes: 26 Findings: internal hemorrhoids and polyp(s) (Sigmoid and rectal) Specimen(s): other (1. Sigmoid polyp2. Rectal polyp) Complications: none Post-procedure Recommendations: Colonoscopy in 3 years Follow up: as needed Disposition: PACU
[2024-07-25 13:34] VITALS: BP 103/69; PULSE 65; RESP 12; TEMP 36.6; O2SAT 97
[2024-07-25 13:42] VITALS: BP 119/78; PULSE 72; RESP 16; TEMP 36.7; O2SAT 96
== END 2024-07-25 13:58 | disposition home or self-care (01) ==
PROVIDERS: PCP Nurse Practitioner Family; Referring Provider Surgery; Visit Provider Surgery
PROC: 0DJD8ZZ Inspection of Lower Intestinal Tract, Via Natural or Artificial Opening Endoscopic (ICD-10-PCS; CPT 45378; principal; 2024-07-25 13:15)
DX: Z12.11 Encounter for screening for malignant neoplasm of colon (principal); D12.5 Benign neoplasm of sigmoid colon; D12.8 Benign neoplasm of rectum; K64.8 Other hemorrhoids; E11.9 Type 2 diabetes mellitus without complications; I10 Essential (primary) hypertension; K21.9 Gastro-esophageal reflux disease without esophagitis; E78.5 Hyperlipidemia, unspecified; F41.9 Anxiety disorder, unspecified; F32.A Depression, unspecified; F43.10 Post-traumatic stress disorder, unspecified; Z79.84 Long term (current) use of oral hypoglycemic drugs
CPT/HCPCS: 45385; J2405; J2704

== ENCOUNTER 2025-06-16 06:19 | Day surgery (SDC) | payer OTHER, SELFPAY ==
[2025-06-05 14:02] VITALS: BMI 30.7
--- NOTE | 2025-06-16 | PATH_ITS ---
[facility] Accession Number: [id number] No. of containers..02 Tissue . 01 Material submitted: . PART A: stomach - STOMACH, ANTRUM PART B: esophagus, E-G Junction - GE JUNCTION . 01 Diagnosis: Part A: STOMACH, ANTRUM: Gastric antral mucosa with no diagnostic alterations. No Helicobacter organisms identified on H/E stain. No intestinal metaplasia, dysplasia, or malignancy identified. . Part B: GE JUNCTION: Gastroesophageal junction mucosa with changes consistent with reflux. No goblet cell metaplasia or dysplasia identified. . Specimen Comments: Rare intraepithelial eosinophils are present. [facility] 06/22/2025 1434 Local . 01 Electronically signed: . Naveed Reed MD, Pathologist NPI- [id number] . 01 Gross description: . A. Received in formalin labeled with two patient identifiers and antral biopsy, are two guzman tissue fragments, ranging from 0.4 to 0.5 cm. Entirely submitted in cassette A1. . B. Received in formalin labeled with two patient identifiers and GE junction, are three guzman tissue fragments ranging from 0.1 to 0.3 cm. Entirely submitted in cassette B1. ([id number]) /[facility] 06/22/2025 1434 Local . 01 Microscopic: . Part B: GE JUNCTION: An ABPAS stain was performed to evaluate for goblet cell metaplasia and is negative. The control stains appropriately. . 01 Pathologist provided ICD-10: K21.00 . 01 CPT . 734882, 256432, 295717 Specimen Comment: A courtesy copy of this report has been sent to [phone] Performed at: [address] [address], [place], [place] [id number] MD Naveed Reed MD Phone: [phone]
[2025-06-16 07:30] VITALS: BP 128/89; PULSE 94; RESP 16; TEMP 36.4; O2SAT 96
[2025-06-16] MEDS: LACTATED RINGERS 1,000 ML 42 ML IV (07:31)
--- NOTE | 2025-06-16 07:32 | PM.PREOP ---
Pre-operative Note COVID-19 COVID-19 status: Not tested Interval Note History & Physical reviewed/Exam performed by Physician: Yes Changes to H&P: No ASA Class (for procedural sedation): II
--- NOTE | 2025-06-16 08:07 | PM.OP.EGD ---
Operative Date/Time/Diagnoses Date of procedure: 06/16/25 Time of procedure: 08:07 Pre-op diagnosis: Hemoptysis Post-op diagnosis: same Procedure & Clinicians Study performed: Esophagogastroduodenoscopy Same procedure(s) as scheduled: Yes Surgeon: Armando Del Rosario Anesthesia Type: MAC +/- Procedure Notes Procedure in detail: Surgeon: Armando Del Rosario MD Anesthesia: Shima Peoples CRNA A timeout was performed. A bite blocked was placed. The patient was positioned in the left lateral decubitus position. Anesthesia was administered. The endoscope was inserted through the bite block and passed through the esophagus and stomach and into the duodenum. The duodenal mucosa appeared normal. The scope was withdrawn into the duodenal bulb and no abnormalities were found. The scope was withdrawn into the stomach. No abnormalities were seen. Random biopsies were taken from the antrum with cold forceps. The rest of the stomach was normal. The scope was retroflexed and no hiatal hernia was noted. The scope was withdrawn into the esophagus and some mild inflammation was noted at the GE junction and biopsies were taken from the GE junction with the cold forceps. The remainder of the esophagus was normal. The scope was withdrawn. The patient was awakened and brought to recovery. Sedation time: 7 minutes Findings: Mild inflammation at the GE junction Estimated Blood Loss: 5 Complications: none Post-procedure Disposition: PACU
[2025-06-16 08:08] VITALS: BP 116/88; PULSE 91; RESP 16; TEMP 36.4; O2SAT 93
[2025-06-16 08:10] VITALS: BP 102/65; PULSE 87; RESP 17; O2SAT 93
[2025-06-16 08:15] VITALS: BP 115/76; PULSE 98; RESP 20; O2SAT 94
--- NOTE | 2025-06-16 08:19 | SUR.PHASEII ---
Called Dr Del Rosario in Endo room. Report nausea in PACU. See new order for aaronfrolivia.
[2025-06-16 08:20] VITALS: BP 113/78; PULSE 93; RESP 24; O2SAT 93
[2025-06-16] MEDS: ONDANSETRON 4 MG/2 ML INJ IV (08:23)
[2025-06-16 08:26] VITALS: BP 105/74; PULSE 89; RESP 29; O2SAT 95
== END 2025-06-16 08:42 | disposition home or self-care (01) ==
PROVIDERS: PCP Nurse Practitioner Family; Referring Provider Surgery; Visit Provider Surgery
PROC: 0DJ08ZZ Inspection of Upper Intestinal Tract, Via Natural or Artificial Opening Endoscopic (ICD-10-PCS; CPT 43239; principal; 2025-06-16 07:45)
DX: R04.2 Hemoptysis (principal); K21.9 Gastro-esophageal reflux disease without esophagitis; Z87.891 Personal history of nicotine dependence; K20.90 Esophagitis, unspecified without bleeding
CPT/HCPCS: 43239; 82962; J2405; J2704; J7120